=== PATIENT | female | born 1965 | race Caucasian/White ===

== ENCOUNTER 2023-04-08 07:33 | Emergency (ER) | payer MEDICAID, SELFPAY ==
[2023-04-08] VITALS (22 sets, daily range): BP systolic 92–152; BP diastolic 62–97; PULSE 60–82; RESP 10–25; TEMP 36.6–36.8; O2SAT 90–99; BMI 38.8; BMI 38.7
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
--- NOTE | 2023-04-08 07:33 | ECG_ITS ---
APPROVED REPORT Exam: Resting ECG HR:79 bpm ECG Measurements Heart Rate 79 AXES MN 181 P 51 QRSd 93 QRS -21 QT 366 T 60 QTc 400 Conclusion SINUS RHYTHM BORDERLINE LEFT AXIS DEVIATION [QRS AXIS < -20] NONSPECIFIC T-WAVE ABNORMALITY BORDERLINE ECG UNCONFIRMED REPORT Electronically signed by : Goldy Hernandez MD 04/08/2023 17:15:10
--- NOTE | 2023-04-08 07:43 | PC.NURSE ---
ER MD Batista at
--- NOTE | 2023-04-08 07:46 | XR_ITS ---
FINAL REPORT CLINICAL HISTORY: cp FINDINGS: SINGLE VIEW CHEST The heart size is normal. The mediastinum is normal. The lungs are clear. There is elevation of the right hemidiaphragm. There is no pneumothorax. IMPRESSION: No acute cardiopulmonary process. Elevation of the right hemidiaphragm. Reviewed, Interpreted and Dictated by Lyndon Tello III, MD Transcribed by Zhou Mayes Authenticated and [facility]
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
[2023-04-08 07:54] LABS: Basophils % 0.3 % (0.1-2.0); Eosinophils # 0.1 K/mm3 (0.0-0.4); Eosinophils % 2.6 % (0.1-12.0); Hematocrit 39.7 % (37.0-47.0); Lymphocytes # 2.2 K/mm3 (0.7-4.5); Lymphocytes % 40.6 % (10-50); Mean Corpuscular HGB Conc 32.7 g/dL (31.8-35.4); Mean Corpuscular Hemoglobin 30.6 pg (27.0-31.2); Mean Corpuscular Volume 93.3 fl (81-99); Mean Platelet Volume 7.8 fl (7.4-10.4); Monocytes # 0.3 K/mm3 (0.1-1.0); Monocytes % 5.1 % (1.7-9.3); Neutrophils # 2.7 K/mm3 (1.8-7.8); Neutrophils % 51.3 % (37.0-80.0); Platelet Count 235 K/mm3 (142-424); Red Blood Count 4.26 M/mm3 (4.20-5.40); Red Cell Distribution Width 13.5 % (11.5-17.5); White Blood Count 5.3 K/mm3 (4.8-10.8)
--- NOTE | 2023-04-08 07:55 | PC.NURSE ---
notified [facility] lab staff of echo order
[2023-04-08 07:58] LABS: Alanine Aminotransferase 24 U/L (12-78); Albumin Level 3.8 g/dl (3.5-5.0); Albumin/Globulin Ratio 1.3 (1.1-1.8); Alkaline Phosphatase 116 U/L (38-126); Anion Gap 8.4 mEq/L (5-15); Aspartate Amino Transferase 30 U/L (14-36); Bilirubin,Total 0.4 mg/dl (0.2-1.3); Blood Urea Nitrogen 15 mg/dl (7-17); Calcium 8.8 mg/dl (8.4-10.2); Carbon Dioxide 29 mmol/L (22.0-30.0); Chloride 106 mmol/L (98-107); Creatinine Clearance Estimated 162 mL/min (50-200); Estimated Glomerular Filt Rate 102 ml/min (>60); GFR (African American) 123 ML/MIN (>60); Glucose 116 mg/dl (74-100); Potassium 3.4 mmoL/L (3.5-5.1); Sodium 140 mmol/L (136-145); Total Protein,Serum 6.8 g/dl (6.3-8.2)
--- NOTE | 2023-04-08 07:58 | PC.NURSE ---
pt in gown for echo, call melton in reach rad at BS for portable xray
--- NOTE | 2023-04-08 08:02 | PC.NURSE ---
Echo at bedside
[2023-04-08 08:08] LABS: Activated Partial Thrombo Time 24.2 seconds (22.8-30.6); INR 0.91 (0.9-1.1); Prothrombin Time 9.9 seconds (10.1-12.5)
[2023-04-08 08:11] LABS: Troponin I 0.12 ng/ml (0.00-0.034)
--- NOTE | 2023-04-08 08:27 | PC.NURSE ---
Rounded on patient; patients daughter and son-in-law at BS. no other needs at this time. Call melton within reach
--- NOTE | 2023-04-08 08:30 | PC.NURSE ---
Dr. Pugh at to speak with patient and family
--- NOTE | 2023-04-08 08:40 | PC.NURSE ---
Dr. Shaffer at states will take pt to cardiac cath tech
--- NOTE | 2023-04-08 08:45 | PC.NURSE ---
ALAN PATINO spoke with hospitalist
--- NOTE | 2023-04-08 08:47 | PC.NURSE ---
notified care management of admission, spoke with christiano
--- NOTE | 2023-04-08 08:58 | PC.NURSE ---
Cardiac cath Consent reviewed and signed. Patient clipped and placed into gown. No further question at this time.
[2023-04-08 08:59] LABS: Coronavirus 19, PCR Not Detected (NotDetected); Influenza A, PCR Not Detected (NotDetected); Influenza B, PCR Not Detected (NotDetected)
--- NOTE | 2023-04-08 09:08 | HMH.PHAINT1 ---
Pharmacy Intervention Comments: MEDICATION RECONCILIATION COMPLETED ON PATIENT USING EXTERNAL FILL HISTORY FROM PHARMACY. -DAVE HARRISON, LEOD
--- NOTE | 2023-04-08 09:18 | PC.NURSE ---
Rounded on patient; Son-in-law at BS, and they both report no needs at this time. Call melton within reach
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
--- NOTE | 2023-04-08 10:28 | PC.NURSE ---
arrived to floor from label printer by camila
--- NOTE | 2023-04-08 11:10 | PC.NURSE ---
pt placed on bedpan to void, will attempt to ambulate with pt to bathroom after able to start taking air out of TR band
== END 2023-04-08 14:30 | disposition admitted as inpatient to this hospital (09) ==
LOC: ER 08:57 → 2ND 09:15
PROVIDERS: Emergency Medicine; Internal Medicine; Emergency Provider Emergency Medicine; PCP Pediatrics; Visit Provider Internal Medicine
DX: R07.9 Chest pain, unspecified (principal); R11.0 Nausea; R61 Generalized hyperhidrosis; R06.02 Shortness of breath; I10 Essential (primary) hypertension
CPT/HCPCS: 71045; 80053; 84484; 85025; 85610; 85730; 87636; 93005; 93306; 96374; 96375; 99152; 99285; C1725; C1769; J1644; J2405; Q9967